=== PATIENT | male | born 1995 | race African-American/Black ===

== ENCOUNTER 2023-10-21 06:25 | Emergency (ER) | payer MEDICAID, OTHER ==
[~2023-10-21] VITALS: Ht 180.3 cm; Wt 63.5 kg
[2023-10-21] MEDS ORDERED: TRIA0.02 TOP (06:56)
[2023-10-21] MEDS ORDERED: NAPR-746 PO (06:56)
[2023-10-21] MEDS ORDERED: CEPH500C PO (06:56)
[2023-10-21] MEDS: KETOROLAC TROMETH 60MG/2ML VIAL IM ONE (07:01)
[2023-10-21 07:19] VITALS: BP 118/84; PULSE 90; RESP 15; TEMP 98.1; O2SAT 98
== END 2023-10-21 07:23 | disposition home or self-care (01) ==
LOC: ER 06:25 → EDBD 06:25 → ER 07:21
DX: S80.862A Insect bite (nonvenomous), left lower leg, initial encounter (principal); F17.210 Nicotine dependence, cigarettes, uncomplicated; F10.90 Alcohol use, unspecified, uncomplicated; F15.90 Other stimulant use, unspecified, uncomplicated; Z79.899 Other long term (current) drug therapy; W57.XXXA Bitten or stung by nonvenomous insect and other nonvenomous arthropods, initial encounter; Y93.89 Activity, other specified; Y92.89 Other specified places as the place of occurrence of the external cause; Y99.8 Other external cause status; Y90.0 Blood alcohol level of less than 20 mg/100 ml
CPT/HCPCS: 96372; 99283; J1885

== ENCOUNTER 2023-11-23 13:51 | Emergency (ER) | payer MEDICAID ==
[~2023-11-23] VITALS: Ht 177.8 cm; Wt 61.5 kg
[~2023-11-23 13:51] MED LIST: CEPH500C PO; NAPR-746 PO; TRIA0.02 TOP
[2023-11-23 14:44] LABS: Urine Bacteria None Seen /hpf (None Seen)
[2023-11-23 14:52] VITALS: BP 117/75; PULSE 97; RESP 17; TEMP 98.8; O2SAT 100
[2023-11-23 15:01] LABS: Urine Blood Negative /uL (Negative); Urine Clarity Clear (Clear); Urine Color Light-Yellow (Yellow); Urine Protein, UAD Negative (Negative); Urine Specific Gravity 1.015 (1.001-1.035); Urine Urobilinogen Normal (Negative); Urine WBC <1 /hpf (0 - 3); Urine pH 7.5 (5.0-9.0)
[2023-11-23 16:14] LABS: Amphetamine Screen, Urine Neg (NEGATIVE); Benzodiazephine Screen, Urine Neg (NEGATIVE)
[2023-11-23 16:15] LABS: Barbiturate Scree,Urine Neg (NEGATIVE); Cannabinoid Screen, Urine Neg (NEGATIVE); Cocaine Screen, Urine Neg (NEGATIVE); Opiate Scree,Urine Neg (NEGATIVE); Phencyclidine Screen, Urine Neg (NEGATIVE)
[2023-11-23 16:39] LABS: Basophils # (auto) 0 10 ^3/uL (0-0.2); Basophils % (auto) 0.6 % (0.0-2.0); Eosinophils # (auto) 0.2 10 ^3/uL (0-0.8); Eosinophils % (auto) 2.2 % (0.0-7.0); Hematocrit 48.3 % (41.0-53.0); Hemoglobin 16.4 g/dL (13.5-17.5); Lymphocytes # (auto) 1.9 10 ^3/uL (0.4-5.4); Lymphocytes % (auto) 25.5 % (10.0-50.0); Mean Corpuscular Hemoglobin 28.2 pg (28.0-32.0); Mean Corpuscular Hgb Conc. 33.9 g/dL (32.0-36.0); Mean Corpuscular Volume 83.3 fL (80.0-100.0); Monocytes # (auto) 0.4 10 ^3/uL (0-1.3); Monocytes % (auto) 5.6 % (0.0-12.0); Neutrophils % (auto) 66.1 % (37.0-80.0); Nucleated Red Blood Cells % 0.1 %; Platelet Count (auto) 235 10^3/uL (140-450); Red Cell Distribution Width 14.1 % (11.8-14.3); White Blood Cell 7.6 10^3/uL (4.4-10.8)
[2023-11-23 16:49] LABS: Chloride 101 mmol/L (98-107); Potassium 4.4 mmol/L (3.5-5.1); Sodium 136 mmol/L (136-145)
[2023-11-23 16:50] LABS: Anion Gap 6 (5-15); Carbon Dioxide 29 mmol/L (20-30)
[2023-11-23 16:51] LABS: Calcium 10.5 mg/dL (8.7-10.4)
[2023-11-23 16:56] LABS: BUN/Creatinine Ratio 11.2 (10.0-20.0); Blood Urea Nitrogen 11 mg/dL (9-23); Glucose 86 mg/dL (74-106)
== END 2023-11-23 17:39 | disposition left against medical advice (07) ==
LOC: ER 13:51
DX: F41.0 Panic disorder [episodic paroxysmal anxiety] (principal); F17.210 Nicotine dependence, cigarettes, uncomplicated; F10.90 Alcohol use, unspecified, uncomplicated; F15.90 Other stimulant use, unspecified, uncomplicated; Z79.899 Other long term (current) drug therapy; Y90.0 Blood alcohol level of less than 20 mg/100 ml
CPT/HCPCS: 36415; 80048; 80307; 81001; 85025

== ENCOUNTER 2024-07-06 07:35 | Emergency (ER) | payer MEDICAID ==
[~2024-07-06] VITALS: Ht 180.3 cm; Wt 63.6 kg
[2024-07-06 07:55] VITALS: BP 111/75; PULSE 98; RESP 16; TEMP 98; O2SAT 99
--- NOTE | 2024-07-06 07:59 | ED.PDOC ---
History of Present Illness HPI Comments 28-year-old male who comes in with chief complaint of right wrist injury. The patient was walking and fell down outside. The patient landed on the right wrist and states that the pain is an 8/10. He is having difficulty moving it at this time. The patient has no other complaints. Chief Complaint: Upper Extremity Time Seen by MD: 07:37 Primary Care Provider: UNKNOWN Reviewed Notes: Nurses Notes, Medications, Allergies (No allergies to medications) Allergies: Coded Allergies: NO KNOWN ALLERGIES (Unverified , 10/21/23) Home Meds Active Scripts Naproxen (Naproxen) 500 Mg Tab, 500 MG PO BID, #20 TAB Prov:DANISH GABRIEL 10/21/23 Cephalexin Monohydrate (Cephalexin) 500 Mg Cap, 1 CAP PO QID, #28 CAP Prov:DANISH GABRIEL 10/21/23 Triamcinolone Acetonide (Triamcinolone Acetonide) 0.025 % Cre, 1 APPLIC TOP BID, #30 GRAMS Prov:DANISH GABRIEL 10/21/23 Information Source: Patient Mode of Arrival: Ambulatory Severity: Moderate Timing: Hours Duration: Since onset Prehospital treatment: None Location: Right wrist pain Past Medical History PAST MEDICAL HISTORY: Denies Surgical History: Denies all surgeries Family History Family History: Reviewed,noncontributory to illness Social History Smoker: Cigarettes Alcohol: Heavy Drugs: Denies Drug Use Lives In: Home Constitutional: denies: chills, diaphoresis, fatigue, fever, malaise, sweats, weakness, others EENTM: denies: blurred vision, double vision, ear bleeding, ear discharge, ear drainage, ear pain, ear ringing, eye pain, eye redness, hearing loss, mouth pain, mouth swelling, nasal discharge, nose bleeding, nose congestion, nose pain, photophobia, tearing, throat pain, throat swelling, voice changes, others Respiratory: denies: cough, hemoptysis, orthopnea, SOB at rest, shortness of breath, SOB with excertion, stridor, wheezing, others Cardiovascular: denies: chest pain, dizzy spells, diaphoresis, Dyspnea on exertion, edema, irregular heart beat, left arm pain, lightheadedness, palpitations, PND, syncope, others Gastrointestinal: denies: abdomen distended, abdominal pain, blood streaked bowels, constipated, diarrhea, dysphagia, difficulty swallowing, hematemesis, melena, nausea, poor appetite, poor fluid intake, rectal bleeding, rectal pain, vomiting, others Genitourinary: denies: burning, dysuria, flank pain, frequency, hematuria, incontinence, penile discharge, penile sore, pain, testicle pain, testicle swelling, urgency, others Neurological: denies: dizziness, fainting, headache, left sided numbness, left sided weakness, numbness, paresthesia, pre-existing deficit, right sided numbness, right sided weakness, seizure, speech problems, tingling, tremors, weakness, others Musculoskeletal: reports: others (Right wrist trauma); denies: back pain, gout, joint pain, joint swelling, muscle pain, muscle stiffness, neck pain Integumetry: denies: bruises, change in color, change in hair/nails, dryness, laceration, lesions, lumps, rash, wounds, others Allergic/Immunocompromised: denies: Difficulty Healing, Frequent Infections, Hives, Itching, others Hematologic/Lymphatic: denies: anemia, blood clots, easy bleeding, easy b ruising, swollen glands, others Endocrine: denies: excessive hunger, excessive sweating, excessive thirst, excessive urination, flushing, intolerance to cold, intolerance to heat, unexplained weight gain, unexplained weight loss, others Psychiatric: denies: anxiety, bipolar disorder, depression, hopeless, panic disorder, schizophrenia, sleepless, suicidal, others Physical Exam General Appearance: Mild Distress HEENT: Normal ENT Inspection, Pharynx Normal, TMs Normal Neck: Full Range of Motion, Non-Tender, Normal, Normal Inspection Respiratory: Chest Non-Tender, Lungs Clear, No Accessory Muscle Use, No Respiratory Distress, Normal Breath Sounds Cardiovascular: No Edema, No JVD, No Murmur, No Gallop, Normal Peripheral Puls es, Regular Rate/Rhythm Breast Exam: Deferred Gastrointestinal: No Organomegaly, Non Tender, No Pulsatile Mass, Normal Bowel Sounds, Soft Genitalia: Deferred Pelvic: Deferred Rectal: Deferred Extremities: No calf tenderness, Normal capillary refill, No pedal edema Musculoskeletal : Location: Right Extremity Location: Wrist Apperance: Limited ROM, Tenderness: Moderate Neurologic: 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 Was a procedure done?: No Differential Dx Considerations may include: Fracture, sprain, dislocation X-Ray, Labs, Meds, VS Vital Signs Date Time Temp Pulse Resp B/P (MAP) Pulse Ox O2 Delivery O2 Flow Rate FiO2 07/06/24 07:55 98 16 99 Room Air* 0 21 07/06/24 07:55 98.0 98 16 111/75 (87) 99 98.0 07/06/24 07:45 98.7 101 16 102/83 (89) 98 98.7 X-ray of the right wrist is negative for any fractures The patient was placed in an Narendra wrap and then sling The patient will follow up with the primary care doctor The patient will return to the emergency department's the condition worsens. The patient was given a dose of Motrin here in the emergency department's We did explain to the patient that there still may be a fracture and so he should follow up with his primary care doctor if there is persistent pain Images Reviewed?: Images reviewed and evaluated by me Time of 1ST Reevaluation: 07:58 Reevaluation 1ST: Improved Patient Education/Counseling: Diagnosis, Treatment, Prognosis, Need For Follow Up Family Education/Counseling: No Family Present Departure 1 Departure Time of Disposition: 07:59 Impression: Primary Impression: Right wrist sprain Qualified Codes: S63.501A - Unspecified sprain of right wrist, initial encounter Disposition: HOME / SELF CARE / HOMELESS Condition: Fair Discharged With: Self Critical Care Note Critical Care Time?: No Stability Stability form required: No Heart Score Heart Score: Heart Score Response (Comments) Value History N/A 0 EKG N/A 0 Age N/A 0 Risk Factors N/A 0 Troponin N/A 0 Total 0 RHONA TELLES MD July 06, 2024 07:59
--- NOTE | 2024-07-06 08:19 | DVH ---
EXAM: XY R WRIST 3+ VIEW XRAY HISTORY: INJURY COMPARISON: None TECHNIQUE: 3 views of the right wrist were performed. FINDINGS: No acute fracture or dislocation are identified about the right wrist. No significant degenerative ch anges. IMPRESSION: 1. No fracture or dislocation in the right wrist.
[2024-07-06] MEDS: IBUPROFEN 600 MG TAB PO ONE (09:04)
--- NOTE | 2024-07-06 09:37 | DVH ---
CLINICAL INDICATION: 28 years old, Male; S/P FALL, PAIN TO WRIST. TECHNIQUE: Noncontrast CT of the right wrist was performed. Sagittal and coronal reformatted images a re provided. COMPARISON: Radiographs of the right wrist is performed same date. CT Dose: CTDI volume is 7.8 mGy. Dose-length product is 135.9 mGy*cm FINDINGS: Acute nondisplaced fracture of the triquetrum. Alignment is maintained. No dislocation. Mild dorsal soft tissue swelling. IMPRESSION: 1. Acute nondisplaced triquetral fracture. All CT scans at this medical facility are performed using dose modulation techniques as appropriate t o a performed exam including the following: Automated exposure control was utilized; adjustment of th e MA and/or KV according to patient size; and use of iterative reconstruction technique.
== END 2024-07-06 10:41 | disposition home or self-care (01) ==
LOC: ER 07:35
DX: S63.501A Unspecified sprain of right wrist, initial encounter (principal); F17.210 Nicotine dependence, cigarettes, uncomplicated; Z79.899 Other long term (current) drug therapy; W19.XXXA Unspecified fall, initial encounter; Y93.01 Activity, walking, marching and hiking; Y92.89 Other specified places as the place of occurrence of the external cause; Y99.8 Other external cause status
CPT/HCPCS: 29125; 73110; 73200

== ENCOUNTER 2024-12-23 | Emergency (ER) | payer MEDICAID, OTHER ==
[~2024-12-23] VITALS: Ht 180.3 cm; Wt 63.7 kg
[2024-12-23 00:31] LABS: Hematocrit 48.7 % (41.0-53.0); Hemoglobin 16.6 g/dL (13.5-17.5); Mean Corpuscular Hemoglobin 27.9 pg (28.0-32.0); Mean Corpuscular Volume 82.0 fL (80.0-100.0); Nucleated Red Blood Cells % 0.3 %
[2024-12-23 00:43] LABS: Chloride 103 mmol/L (98-107); Sodium 139 mmol/L (136-145)
[2024-12-23 00:44] LABS: Anion Gap 9 (5-15); Carbon Dioxide 27 mmol/L (20-31)
[2024-12-23 00:45] LABS: Calcium 9.9 mg/dL (8.7-10.4)
[2024-12-23 00:49] LABS: BUN/Creatinine Ratio 7.5 (10.0-20.0); Glucose 102 mg/dL (74-106); Potassium 3.3 mmol/L (3.5-5.1)
[2024-12-23 00:50] LABS: Blood Urea Nitrogen 8 mg/dL (9-23)
[2024-12-23] MEDS: NITROGLYCERIN 0.4 MG SL TAB SL ONE (00:50)
[2024-12-23] MEDS: IOHEXOL 350 MG/ML 100ML IJ ONE (01:45)
--- NOTE | 2024-12-23 02:24 | DVH ---
CHEST RADIOGRAPH Indication: Chest pain Technique: Single frontal view of the chest was obtained COMPARISON: CT CHEST WITH CONTRAST on DOS: 12/23/24 FINDINGS: Lines and Tubes: None Lungs: Clear Pleura: No effusion. No pneumothorax. Cardiomediastinal contours: Unremarkable Bones: Unremarkable IMPRESSION: 1. No acute disease.
--- NOTE | 2024-12-23 02:29 | DVH ---
Procedure: CT CHEST WITH CONTRAST 12/23/2024 01:45 AM History: Burning chest pain and significant throat pain Comparison: None Technique: After the uneventful administration of contrast intravenously, CT imaging was performed th rough the chest. Coronal and sagittal reformations were performed by the technologist. 3D image postprocessing was performed on a dedicated workstation and images were used for interpretat ion and reporting. Radiation Dose : CT Dose: CTDI volume is 5.08 mGy. Dose-length product is 223.23 mGy*cm CONTRAST: Type of contrast: Omnipaque 350 Contrast injected: 50 ml Findings: Lower neck: Normal thyroid. Lungs: No focal consolidation. Heart/Vascular Structures: Normal heart size. No pericardial effusion. Lymph Nodes: No adenopathy Pleura: No pleural effusion or significant pneumothorax. Musculoskeletal: No acute osseous abnormality. Soft tissues: Normal. Upper abdomen: Limited portions of the upper abdomen are unremarkable. IMPRESSION: No evidence of acute intrathoracic pathology.
--- NOTE | 2024-12-23 02:32 | DVH ---
Exam: CT CT ANGIO NECK CONTRAST INDICATION: Significant throat pain EXAM DATE: 12/23/2024 01:41 AM COMPARISON: None TECHNIQUE: CTA neck with intravenous contrast. 3D image postprocessing was performed on a dedicated workstation and images were used for interpretation and reporting. RADIATION DOSE: Angio: CTDIvol: mGy, DLP: mGy*cm FINDINGS: CTA neck: The visualized thoracic aortic arch and proximal great vessels are unremarkable. The left common, in ternal and external carotid arteries are within normal limits. The right common, internal and bagger meat al carotid arteries are within normal limits. The cervical segments of the right and left vertebral arteries are within normal limits. The limited visualized lung apices are clear. The surrounding so ft tissues and osseous structures are otherwise unremarkable. IMPRESSION: 1. No evidence of hemodynamically significant cervical stenosis or dissection. CAROTID STENOSIS REFERENCE Distal internal carotid artery diameter as the denominator for stenosis measurement: MILD = <50% stenosis. MODERATE = 50-69% stenosis. SEVERE = 70-89% stenosis. CRITICAL = 90-99% stenosis. OCCLUDED = 100% stenosis.
[2024-12-23] MEDS ORDERED: IBUP-1454 PO (02:59)
[2024-12-23] MEDS ORDERED: HYDR-4902 PO (02:59)
--- NOTE | 2024-12-23 03:00 | ED.PDOC ---
HPI Comments This patient is a 21-year-old male who arrives the ED today with complaints of significant chest pain, throat pain, shortness a breath and pain that radiates towards the left-sided chest into the left arm for the past three days. Patient denies any history of cardiac concerns. Patient states the symptoms came on and has been relatively unrelenting. At time of evaluation, patient was in obvious discomfort and was experiencing throat pain concerns. Vital signs were stable on arrival. Chief Complaint: Chest Pain Time Seen by MD: 00:06 Primary Care Provider: NONE Reviewed Notes: Nurses Notes Allergies: Coded Allergies: NO KNOWN ALLERGIES (Unverified , 10/21/23) Home Meds Active Scripts Naproxen (Naproxen) 500 Mg Tab, 500 MG PO BID, #20 TAB Prov:DANISH GABRIEL 10/21/23 Cephalexin Monohydrate (Cephalexin) 500 Mg Cap, 1 CAP PO QID, #28 CAP Prov:DANISH GABRIEL 10/21/23 Triamcinolone Acetonide (Triamcinolone Acetonide) 0.025 % Cre, 1 APPLIC TOP BID, #30 GRAMS Prov:DANISH GABRIEL 10/21/23 Information Source: Patient Mode of Arrival: Ambulatory Severity: Moderate Timing: Days Duration: Since onset Prehospital treatment: None Location: Chest (L), Substernal Radiation: Arm (L) Quality: Sharp, Stabbing, Burning Onset: At Rest Cardiac Risk Factors: None PE Risk Factors: None History of: None Associated Signs and Symptoms: SOB Past Medical History PAST MEDICAL HISTORY: Denies Surgical History: Denies all surgeries Family History Family History: Reviewed,noncontributory to illness Social History Smoker: Cigarettes Alcohol: Heavy Drugs: Denies Drug Use Lives In: Home Constitutional: denies: chills, diaphoresis, fatigue, fever, malaise, sweats, weakness, others EENTM: reports: throat pain; denies: blurred vision, double vision, ear bleeding, ear discharge, ear drainage, ear pain, ear ringing, eye pain, eye redness, hearing loss, mouth pain, mouth swelling, nasal discharge, nose bleeding, nose congestion, nose pain, photophobia, tearing, throat swelling, voice changes, others Respiratory: reports: shortness of breath; denies: cough, hemoptysis, orthopnea, SOB at rest, SOB with excertion, stridor, wheezing, others Cardiovascular: reports: chest pain; denies: dizzy spells, diaphoresis, Dyspnea on exertion, edema, irregular heart beat, left arm pain, lightheadedness, palpitations, PND, syncope, others Gastrointestinal: denies: abdomen distended, abdominal pain, blood streaked bowels, constipated, diarrhea, dysphagia, difficulty swallowing, hematemesis, melena, nausea, poor appetite, poor fluid intake, rectal bleeding, rectal pain, vomiting, others Genitourinary: denies: burning, dysuria, flank pain, frequency, hematuria, incontinence, penile discharge, penile sore, pain, testicle pain, testicle swelling, urgency, others Neurological: denies: dizziness, fainting, headache, left sided numbness, left sided weakness, numbness, paresthesia, pre-existing deficit, right sided n umbness, right sided weakness, seizure, speech problems, tingling, tremors, weakness, others Musculoskeletal: reports: others (Left arm pain); denies: back pain, gout, joint pain, joint swelling, muscle pain, muscle stiffness, neck pain Integumetry: denies: bruises, change in color, change in hair/nails, dryness, laceration, lesions, lumps, rash, wounds, others Allergic/Immunocompromised: denies: Difficulty Healing, Frequent Infections, Hives, Itching, others Hematologic/Lymphatic: denies: anemia, blood clots, easy bleeding, easy bruising, swollen glands, others Endocrine: denies: excessive hunger, excessive sweating, excessive thirst, excessive urination, flushing, intolerance to cold, intolerance to heat, unexplained weight gain, unexplained weight loss, others Psychiatric: reports: anxiety; denies: bipolar disorder, depression, hopeless, panic disorder, schizophrenia, sleepless, suicidal, others Physical Exam General Appearance: Moderate Distress (Moderate distress due to his pain concerns.), Normal HEENT: Pharynx Normal, TMs Normal, Other (Patient complains of throat pain concerns. Evaluation was unremarkable. No erythema or exudate noted. External evaluation revealed tenderness to palpation throughout. No signs of trauma.) Neck: Full Range of Motion, Non-Tender, Normal, Normal Inspection Respiratory: Lungs Clear, No Accessory Muscle Use, No Respiratory Distress, Normal Breath Sounds, Other (Unable to elicit any pain on palpation of the chest wall.) Cardiovascular: No Edema, No JVD, No Murmur, No Gallop, Normal Peripheral Pulses, Regular Rate/Rhythm Breast Exam: Deferred Gastrointestinal: No Organomegaly, Non Tender, No Pulsatile Mass, Normal Bowel Sounds, Soft Genitalia: Deferred Pelvic: Deferred Rectal: Deferred Extremities: No calf tenderness, Normal inspection, Non-tender Neurologic: Alert Cerebellar Function: NOT DONE Reflexes: NOT DONE Skin: Dry, Normal Color, Warm Lymphatic: No Adenopathy Was a procedure done? Was a procedure done?: No CP Differential Dx Differential Diagnosis: A-fib, A-Flutter, Anxiety / Panic Attack, Atrial Dysr hythmia, AV Block 1st Degree, NC Differential Diagnosis: Angina, Chest Wall Pain, Esophageal reflux/spasm X-Ray, Labs, Meds, VS Vital Signs Date Time Temp Pulse Resp B/P (MAP) Pulse Ox O2 Delivery O2 Flow Rate FiO2 12/23/24 02:03 102/74 12/23/24 01:12 69 20 102/70 (81) 100 12/23/24 00:50 98.0 98 19 120/94 (103) 97 98.0 12/23/24 00:50 120/84 12/23/24 00:50 98 19 97 Room Air 12/23/24 00:02 97.0 102 16 125/83 99 97.0 Lab Test 12/23/24 01:25 12/23/24 00:15 Range/Units Troponin I High Sensitivity < 3 L < 3 L </=54 ng/L White Blood Count 8.1 4.4-10.8 10^3/uL Red Blood Count 5.94 H 4.5-5.90 10^6/uL Hemoglobin 16.6 13.5-17.5 g/dL Hematocrit 48.7 41.0-53.0 % Mean Corpuscular Volume 82.0 80.0-100.0 fL Mean Corpuscular Hemoglobin 27.9 L 28.0-32.0 pg Mean Corpuscular Hemoglobin Concent 34.0 32.0-36.0 g/dL Red Cell Distribution Width 13.8 11.8-14.3 % Platelet Count 221 140-450 10^3/uL Mean Platelet Volume 7.8 6.9-10.8 fL Neutrophils (%) (Auto) 57.3 37.0-80.0 % Lymphocytes (%) (Auto) 32.3 10.0-50.0 % Monocytes (%) (Auto) 6.9 0.0-12.0 % Eosinophils (%) (Auto) 2.8 0.0-7.0 % Basophils (%) (Auto) 0.7 0.0-2.0 % Neutrophils # (Auto) 4.6 1.6-8.6 10 ^3/uL Lymphocytes # (Auto) 2.6 0.4-5.4 10 ^3/uL Monocytes # (Auto) 0.6 0-1.3 10 ^3/uL Eosinophils # (Auto) 0.2 0-0.8 10 ^3/uL Basophils # (Auto) 0.1 0-0.2 10 ^3/uL Nucleated Red Blood Cells 0.3 % D-Dimer, Quantitative < 0.19 0.0-0.49 mg/L FEU Sodium Level 139 136-145 mmol/L Potassium Level 3.3 L 3.5-5.1 mmol/L Chloride Level 103 98-107 mmol/L Carbon Dioxide Level 27 20-31 mmol/L Anion Gap 9 5-15 Blood Urea Nitrogen 8 L 9-23 mg/dL Creatinine 1.07 0.700-1.30 mg/dL Glomerular Filtration Rate Calc 97 >90 mL/min BUN/Creatinine Ratio 7.5 L 10.0-20.0 Serum Glucose 102 74-106 mg/dL Calcium Level 9.9 8.7-10.4 mg/dL B-Type Natriuretic Peptide 1.50 0-100 pg/mL Current Medications Medications (Trade) Dose Ordered Sig/Julia Route Start Time Stop Time Status Last Admin Aspirin 81 mg ONCE ONCE PO 12/23/24 00:30 12/23/24 00:31 DC 12/23/24 00:48 Nitroglycerin (Ntrostat Sublingual) 0.4 mg ONCE ONCE SL 12/23/24 00:45 12/23/24 00:46 DC 12/23/24 00:50 Dexamethasone Sodium Phosphate (Decadron Injection) 10 mg ONCE ONCE IM 12/23/24 01:15 12/23/24 01:16 DC 12/23/24 01:08 X-Ray, Labs, Meds, VS Comment All studies performed in the ED were evaluated by me personally. Serum studies were unremarkable for any systemic concerns including unremarkable cardiac markers. EKG revealed a sinus rhythm with a rate of 66. Incomplete right bundle-branch block was noted as well as RSR in V1 or V2 and probable normal early repolarization pattern. MT interval 161 and QT interval of 362. After the patient received a round of nitro, patient began to complain of increased neck pain and chest pain concerns. CT angio of neck and chest was unremarkable for any acute findings. No neoplasms. No signs of constriction or intrathoracic concerns. Patient has been advised to follow up with his primary care provider for re-evaluation and possible cardiac referral. Advised patient that if symptoms return, return to ED for continued evaluation. Time of 1ST Reevaluation: 02:57 Reevaluation 1ST: Improved Consultation: PCP, Cardiology Patient Education/Counseling: Diagnosis, Treatment Family Education/Counseling: Diagnosis, Treatment SEPSIS Sepsis Screen Date sepsis recognized/suspect: Dec 23, 2024 Time Sepsis recognized/suspect: 0005 Recent Procedure: No On Antibiotic Therapy: No Respiratory Rate >20: No Heart Rate >90: No Temp<36 C (96.8 F) or >38.3 C: No SBP <90 or MAP <65 mmHG: No New Acute Mental Status Change: No Is the patient on CPAP, BIPAP,: No Physician Orders Chest Portable (12/23/24 00:16) Urinalysis (12/23/24 00:16) Electrocardigram (12/23/24 00:16) Heplock Iv (12/23/24 ) Chest With Contrast (12/23/24 01:14) Ct Angio Neck Contrast (12/23/24 01:14) Vital Signs Date Time Temp Pulse Resp B/P (MAP) Pulse Ox O2 Delivery O2 Flow Rate FiO2 12/23/24 02:03 102/74 12/23/24 01:12 69 20 102/70 (81) 100 12/23/24 00:50 98.0 98 19 120/94 (103) 97 98.0 12/23/24 00:50 120/84 12/23/24 00:50 98 19 97 Room Air 12/23/24 00:02 97.0 102 16 125/83 99 97.0 Laboratory Tests Test 12/23/24 00:15 White Blood Count 8.1 10^3/uL (4.4-10.8) Medications Medications Dose Ordered Sig/Julia Route Start Time Stop Time Status Last Admin Dose Admin Aspirin 81 mg ONCE ONCE PO 12/23/24 00:30 12/23/24 00:31 DC 12/23/24 00:48 Dexamethasone Sodium Phosphate 10 mg ONCE ONCE IM 12/23/24 01:15 12/23/24 01:16 DC 12/23/24 01:08 Nitroglycerin 0.4 mg ONCE ONCE SL 12/23/24 00:45 12/23/24 00:46 DC 12/23/24 00:50 Departure 1 Departure Time of Disposition: 02:57 Impression: Primary Impression: Chest pain Additional Impression: Neck pain Disposition: HOME / SELF CARE / HOMELESS Condition: Stable Additional Instructions: Advised pain medication as needed for symptomatic relief. If symptoms return and patient feels unsafe, please return to ED for evaluation. Patient will need to follow up with his primary care provider for re-evaluation and probable cardiac referral. e-Prescriptions Hydrocodone-Acetaminophen (Hydrocodone Bitartrate/AC 5-325 mg) 1 Tab Tab 1 TAB PO Q6HP PRN, #10 TAB Prov: SHAMEKA AGARWAL PAC 12/23/24 Ibuprofen (Ibuprofen) 600 Mg Tab 1 TAB PO Q6HP PRN, #20 TAB Prov: SHAMEKA AGARWAL PAC 12/23/24 Discharged With: Self, Friend Critical Care Note Critical Care Time?: No Stability Stability form required: No Heart Score Heart Score: Heart Score Response (Comments) Value History Slightly Suspicious 0 EKG Repolarization Disturb 1 Age <45 0 Risk Factors No known risk factors 0 Troponin Normal limit 0 Total 1 SHAMEKA AGARWAL PAC Dec 23, 2024 03:00
--- NOTE | 2024-12-23 03:01 | ECG ---
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
[2024-12-23 03:24] VITALS: BP 105/74; PULSE 84; RESP 17; TEMP 97.7; O2SAT 97
[2024-12-23] MEDS ORDERED: NITROGLYCERIN 0.4 MG SL TAB SL ONE (10:00)
--- NOTE | 2024-12-24 10:06 | ECG ---
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
== END 2024-12-23 03:25 | disposition home or self-care (01) ==
LOC: ER
DX: R07.89 Other chest pain (principal); M54.2 Cervicalgia; R06.02 Shortness of breath; F17.210 Nicotine dependence, cigarettes, uncomplicated
CPT/HCPCS: 36415; 70498; 71045; 71260; 80048; 83880; 84484; 85025; 85379; 93005; 96372; 99285; J1100; Q9967